=== PATIENT | female | born 1995 | race Caucasian/White ===

== ENCOUNTER 2019-12-29 20:44 | Emergency (ER) | payer OTHER ==
--- NOTE | 2019-12-29 21:24 | ER Document Report ---
ED General - General Chief Complaint: Swallowed Foreign Body Stated Complaint: FOREIGN BODY IN THROAT Time Seen by Provider: 12/29/19 20:56 Mode of Arrival: Ambulatory Information source: Patient Notes: 24-year-old female coming in today with possible food bolus. She has had a food bolus before. About an hour and a half prior to coming in she ate a piece of steak and ever since then has not been able to swallow her own secretions. When she tries to drink water it comes right back up. Past Medical History - General Information source: Patient - Social History Smoking Status: Unknown if Ever Smoked Family History: Reviewed & Not Pertinent Review of Systems - Review of Systems Notes: Constitutional: No fevers. No chills. EENT: No eye redness. No eye pain. No ear pain. No sore throat. Cardiovascular: No chest pain. No palpitations. Respiratory: No cough. No shortness of breath. No respiratory distress. Gastrointestinal: No abdominal pain. No nausea, vomiting, or diarrhea. Positive for dysphagia Genitourinary: Atraumatic. No lesions. No pain. No discharge. Musculoskeletal: Atraumatic. No swelling. No deformities. Skin: No rash or lesions. Lymphatic: No swollen lymph nodes. Neurologic: No headache. No syncope. Psychiatric: No suicidal or homicidal ideation. Physical Exam - Notes Notes: General: Well-developed, well-nourished. In no acute distress. Non-toxic appearing. Cardiac: Well-perfused. Regular rate and rhythm. No murmurs, rubs, or gallops. Pulmonary: No respiratory distress. No cyanosis. Bilateral lung fiels are clear to auscultation. Abdominal: Non-distended. Non-rigid. Bowels sounds are present. Spitting secretions into a emesis bag. HEENT: Head is atraumatic. Conjunctivae not reddened. No tearing. PERRL. EOMI. Orbits atraumatic. No periorbital swelling or erythema. Oropharynx is without erythema, swelling, or exudates. Neck: Supple. No adenopathy. No meningismus. Dermatologic: Warm with good turgor. No rash. Atraumatic. Chest: Atraumatic. No chest wall tenderness to palpation. Musculoskeletal: Moves all extremities well. No range of motion deficits. no muscular or joint tenderness. No paraspinal muscle tenderness. no midline spinal tenderness or step-off. Genitourinary: Examination deferred Neurologic: No gross neurologic deficits. Psychiatric: Normal mood. Course - Re-evaluation Re-evalutation: 12/29/19 21:[address] Osei who is capable of doing endoscopy. He requested the patient's room number and should be coming down to evaluate. 12/29/19 21:46 Patient has just gotten her coronavirus screening collected and sent. She will have to test negative before she goes to the OR. In the meantime we will give a little bit of morphine for pain. 12/29/19 23:01 Patient spontaneously swallowed the piece of steak. I observed her guzzling a bottle of water with no difficulty. Surgeon notified. Will discharge. Discharge - Discharge Clinical Impression: Food impaction of esophagus Qualifiers: Encounter type: initial encounter Qualified Code(s): T18.128A - Food in esophagus causing other injury, initial encounter Condition: Good Disposition: HOME, SELF-CARE Instructions: Esophageal Food Impaction ([facility]) Referrals: CATALINA SUTTON MD [ACTIVE STAFF] - Follow up as needed
--- NOTE | 2019-12-29 23:02 | PDOC H&P ---
History of Present Illness Patient complains of: Lodged esophageal food bolus History of Present Illness: GALI GREER is a 24 year old female who was eating steak earlier tonight. She swallowed a large piece of steak, and felt it become lodged in her esophagus. She cannot swallow or manage her own saliva. She does feel tightness and pain in her substernal chest, with swallowing. This is the second time she has experienced a food bolus become lodged in her esophagus. Last time, she had an EGD with extraction in [place], [place]. She denies any knowledge of a stricture or other esophageal abnormality. She denies cough, fevers, chills, shortness of breath, abdominal pain, nausea, melena, hematochezia, diarrhea, constipation. Past Medical History Medical History: None Past Surgical History Past Surgical History: Reports: Other - EGD with food bolus extraction in [place]. Social History Smoking Status: Never Smoker Frequency of Alcohol Use: Rare Hx Recreational Drug Use: No Hx Prescription Drug Abuse: No Family History Family History: Reviewed & Not Pertinent Parental Family History Reviewed: Yes Children Family History Reviewed: Yes Sibling(s) Family History Reviewed.: Yes Review of Systems Constitutional: ABSENT: anorexia, chills, fatigue Eyes: ABSENT: visual disturbances Ears: ABSENT: hearing changes Nose, Mouth, and Throat: ABSENT: sore throat Cardiovascular: PRESENT: chest pain - With swallowing Respiratory: ABSENT: cough, dyspnea Gastrointestinal: ABSENT: abdominal pain, bloating, nausea Genitourinary: ABSENT: dysuria Musculoskeletal: ABSENT: back pain Integumentary: ABSENT: pruritus, rash Neurological: ABSENT: confusion, convulsions, dizziness Psychiatric: ABSENT: anxiety, depression Endocrine: ABSENT: cold intolerance, heat intolerance Hematologic/Lymphatic: ABSENT: easy bleeding, easy bruising Physical Exam General appearance: PRESENT: no acute distress, cooperative Head exam: PRESENT: atraumatic, normocephalic Eye exam: PRESENT: EOMI, PERRLA. ABSENT: scleral icterus Mouth exam: PRESENT: moist, neck supple Neck exam: ABSENT: meningismus, tenderness, thyromegaly, tracheal deviation Respiratory exam: PRESENT: unlabored. ABSENT: tachypnea, wheezes Cardiovascular exam: ABSENT: tachycardia Pulses: PRESENT: normal radial pulses Vascular exam: PRESENT: normal capillary refill GI/Abdominal exam: PRESENT: soft. ABSENT: distended, tenderness Rectal exam: PRESENT: deferred Extremities exam: ABSENT: clubbing Musculoskeletal exam: ABSENT: deformity Neurological exam: PRESENT: alert, awake, oriented to person, oriented to place, oriented to time, oriented to situation, CN II-XII grossly intact. ABSENT: motor sensory deficit Psychiatric exam: ABSENT: agitated, anxious, depressed Focused psych exam: ABSENT: delusional Skin exam: ABSENT: cyanosis, erythema, jaundice Assessment & Plan - Diagnosis (1) Food impaction of esophagus Qualifiers: Encounter type: initial encounter Qualified Code(s): T18.128A - Food in esophagus causing other injury, initial encounter Is this a current diagnosis for this admission?: Yes - Time Anticipated Discharge Disposition: unknown Anticipated Discharge Timeframe: unknown - Plan Summary Plan Summary: 4-year-old female who was eating steak earlier tonight. A piece of this steak has become lodged in her esophagus. She cannot manage her own secretions. Plan for EGD with food bolus extraction. Risks/benefits discussed, informed consent obtained, and all questions answered.
--- NOTE | 2019-12-29 23:02 | Progress Note ---
Provider Note Provider Note: Called by ED provider. Pt's symptoms spontaneously resolved. She does not desire EGD. Disposition per ED provider.
[2019-12-29 23:04] VITALS: BP 127/66
== END 2019-12-29 23:00 | disposition home or self-care (01) ==
LOC: ER 20:44
DX: T18.128A Food in esophagus causing other injury, initial encounter (principal); X58.XXXA Exposure to other specified factors, initial encounter; Z20.828 Contact with and (suspected) exposure to other viral communicable diseases
CPT/HCPCS: 99282; 87635; C9803